=== PATIENT | female | born 1955 | race Caucasian/White ===

== ENCOUNTER 2020-01-09 11:20 | Emergency (ER) | payer MEDICARE, OTHER, SELFPAY ==
[2020-01-09 11:29] VITALS: BP 143/88; PULSE 75; RESP 20; TEMP 37.1; O2SAT 100
--- NOTE | 2020-01-09 11:32 | ED.WOUNDLAC ---
HPI - Wound/Laceration General Chief Complaint: Wound/Laceration Stated Complaint: Cut to left forefinger Time Seen by Provider: 01/09/20 11:32 Source: patient and RN notes reviewed Mode of arrival: ambulatory Limitations: no limitations History of Present Illness HPI narrative: 64-year-old female presents with concern for laceration to the second digit of her left hand. Reports she was cutting apples when she sliced her finger. Reports she is not up-to-date on her tetanus vaccination. Extremity Location: Left: hand Related Data Home Medications Medication Instructions Recorded Confirmed hydrochlorothiazide 01/09/20 levothyroxine 75 mcg PO DAILY 01/09/20 01/09/20 lisinopril 20 mg PO DAILY 01/09/20 01/09/20 omeprazole 40 mg PO BID 01/09/20 01/09/20 Allergies Allergy/AdvReac Type Severity Reaction Status Date / Time UNKNOWN Allergy Other Uncoded 01/09/20 11:52 Review of Systems Review of Systems: Narrative: CONSTITUTIONAL: Denies malaise, chills, sweats, or fever. SKIN: Reports laceration of the second digit of her left hand MUSCULOSKELETAL: Denies musculoskeletal NEUROLOGIC: Denies numbness, weakness. All systems reviewed & are unremarkable except as noted in HPI and below PMFSH Comments At time of signature, agree with nursing past medical, surgical, social and family history. There is no relevant family history pertinent to the presenting complaint Exam Narrative: Exam Narrative: GENERAL: Well-appearing, well-nourished, and in no acute distress. HEAD: Normocephalic EYES: PERRLA, conjunctivae clear NECK: Supple. CHEST: Speaks in full sentences. No respiratory distress. HEART: Regular rate and rhythm. Normal and equal peripheral pulses. EXTREMITIES: Right second digit left hand of hand have normal strength and sensation. 5/5 strength with digit flexion, extension. Range of motion normal. No clubbing, cyanosis, or edema noted. No tenderness. Skin intact. Normal digital cascade with flexion of fingers, median, ulnar and radial nerve intact. Normal sensation of each side of finger. Can perform 'okay' sign, 'cross over finger test of index and middle fingers' and 'thumbs up' sign. No scissoring. Normal thumb opposition. Good capillary refill and radial pulse. Distal capillary refill less than 3 seconds. SKIN: Warn, dry, intact, pink. 2.5 cm laceration noted to the lateral aspect of the second digit of the left hand and subcutaneous tissue NEURO: Alert and oriented x3. PSYCH: Normal mood and affect Course Course Emergency Course: Patient is aware of diagnosis, understands and agrees to treatment plan. Anticipatory guidance given. Patient agrees to follow-up as directed and is aware of reasons to seek care at the emergency department. Portions of this record may have been created with voice recognition software Vital Signs Vital signs: Vital Signs Temperature 98.7 F 01/09/20 11:29 Pulse Rate 75 01/09/20 11:29 Respiratory Rate 20 01/09/20 11:29 Blood Pressure 143/88 H 01/09/20 11:29 Pulse Oximetry 100 01/09/20 11:29 Temperature 98.7 F 01/09/20 11:29 Pulse Rate 75 01/09/20 11:29 Respiratory Rate 20 01/09/20 11:29 Blood Pressure 143/88 H 01/09/20 11:29 Pulse Oximetry 100 01/09/20 11:29 Reviewed. Patient has history of hypertension Procedures Laceration Laceration 1: Date: 01/09/20 Time: 11:42 Site: hand Side (If applicable): left Size (cm): 2.5 Description: irregular Depth: simple, single layer Local Anesthetic: lidocaine 1% Amount of anesthesia used (mL): 3 Pre-repair: wound explored and irrigated ====== Skin Level ====== Skin layer closed with: nylon Size (cm): 5-0 Number of sutures: 7 Technique: simple, interrupted ====== Subcutaneous Layer ====== ====== Muscle Layer ====== ====== Tendon Layer ====== MDM - Wound/Laceration [facility] Narrative Medical dec
[2020-01-09] MEDS: TETANUS,DIPHTHERIA,AC PERTUSSIS ADULT (0.5 ML) BOOSTRIX IM (12:28)
== END 2020-01-09 12:50 | disposition home or self-care (01) ==
PROVIDERS: Emergency Provider Nurse Practitioner; PCP Family Medicine
DX: S61.211A Laceration without foreign body of left index finger without damage to nail, initial encounter (principal); W45.8XXA Other foreign body or object entering through skin, initial encounter; Z23 Encounter for immunization; I10 Essential (primary) hypertension
CPT/HCPCS: 12001; 90471; 90715; 99212; G0463